=== PATIENT | female | born 2000 | race African-American/Black ===

== ENCOUNTER 2019-06-12 12:49 | Inpatient (IN) ==
[2019-06-12] MEDS ORDERED: Ondansetron 4 MG/2 ML VIAL IVP PRN (13:03)
[2019-06-12] MEDS ORDERED: Metoclopramide 10 MG/2 ML VIAL IVP PRN (13:03)
[2019-06-12] MEDS ORDERED: Naloxone 0.4 MG/ML INJ IVP PRN (13:03)
[2019-06-12] MEDS ORDERED: *HR* Nalbuphine 10 MG/ML AMPUL IVP PRN (13:03)
[2019-06-12] MEDS ORDERED: Famotidine 20 MG/2 ML VIAL IVP PRN (13:03)
[2019-06-12] MEDS ORDERED: miSOPROStoL 25 MCG TABLET PO PRN (13:03)
[2019-06-12] MEDS ORDERED: Lidocaine 1% 20 ML MDV INFILT PRN (13:03)
[2019-06-12] MEDS ORDERED: Oxytocin 20 units/ LR 1000 mL 20 UNIT/1,000 ML BAG IVC SCH (13:15)
[2019-06-12] MEDS ORDERED: Ringers Solution, Lactated 1,000 ML IVC SCH (13:15)
[2019-06-12] MEDS ORDERED: Epidural Premix (fent/bupiv) 110 ML EP SCH (13:45)
[2019-06-12 14:23] LABS: Basophils % 0.4 %; Eosinophils # 0.1 K/mcL (0.0-0.6); Eosinophils % 1.5 %; Hematocrit 27.8 % (35.3-44.9); Hemoglobin 8.3 g/dL (11.5-15.4); Lymphocytes # 0.7 K/mcL (0.6-4.6); Lymphocytes % 7.5 %; Mean Corpuscular HGB Conc 29.9 g/dL (31.6-35.5); Mean Corpuscular Hemoglobin 24.3 pg (28.0-33.3); Mean Corpuscular Volume 81.5 fL (83.0-100.0); Mean Platelet Volume 9.6 fL (9.4-12.4); Monocytes % 10.6 %; Neutrophils # 7.3 K/mcL (1.6-8.9); Platelet Count 240 K/mcL (140-400); Red Blood Count 3.41 M/mcL (3.82-4.97); Red Cell Distribution Width 15.6 % (11.5-14.5); White Blood Count 9.4 K/mcL (4.3-11.1)
[2019-06-12 14:37] LABS: Amphetamine Screen,Urine Negative ng/mL (Cutoff=1000); Barbiturate Screen,Urine Negative ng/mL (Cutoff=200); Benzodiazepines Screen,Urine Negative ng/mL (Cutoff=200); Cannabinoid Screen,Urine Negative ng/mL (Cutoff = 50); Cocaine Screen,Urine Negative ng/mL (Cutoff= 300); Opiate Screen,Urine Negative ng/mL (Cutoff=300); Phencyclidine Screen,Urine Negative ng/mL (Cutoff=25)
[2019-06-12 15:44] LABS: Creatinine,Urine 83 mg/dL; Protein/Creatinine Ratio,Urine 0.17 mg/mg (0.00-0.20)
[2019-06-12 15:45] LABS: Alanine Aminotransferase 13 Units/L (7-52); Aspartate Amino Transferase 27 Units/L (13-39); BUN/Creatinine Ratio 10 (6-26); Blood Urea Nitrogen 7 mg/dL (6-20); Lactate Dehydrogenase 328 Units/L (140-271); Uric Acid 3.6 mg/dL (2.3-7.6); eGFR For African Americans > 60 (> 60); eGFR For Non-African Americans > 60 (> 60)
[2019-06-12] MEDS ORDERED: Ringers Solution, Lactated 1,000 ML ONE (22:54)
[2019-06-13] MEDS ORDERED: Ibuprofen 600 MG TABLET PO STA (05:02)
[2019-06-13] MEDS ORDERED: Oxytocin 20 units/ LR 1000 mL 20 UNIT/1,000 ML BAG IVC SCH (08:36)
[2019-06-13] MEDS ORDERED: *HR* HYDROcodone/Acet 5/325 mg TABLET PO PRN (08:36)
[2019-06-13] MEDS ORDERED: Lanolin 7 G OINT...G. TP PRN (08:36)
[2019-06-13] MEDS ORDERED: Benzocaine/Menthol 56 GM AEROSOL SPRAY TP PRN (08:36)
[2019-06-13] MEDS ORDERED: Acetaminophen 325 MG TABLET PO PRN (08:36)
[2019-06-13] MEDS: Prenatal Vit/FA 1 EACH TABLET PO SCH (09:13)
[2019-06-13] MEDS: Ibuprofen 600 MG TABLET PO PRN (14:56)
[2019-06-14 07:05] LABS: Basophils % 0.1 %; Eosinophils # 0.4 K/mcL (0.0-0.6); Eosinophils % 3.7 %; Hematocrit 21.7 % (35.3-44.9); Hemoglobin 6.8 g/dL (11.5-15.4); Immature Granulocytes % 2.8 % (0-4); Lymphocytes # 1.5 K/mcL (0.6-4.6); Lymphocytes % 15.4 %; Mean Corpuscular HGB Conc 31.3 g/dL (31.6-35.5); Mean Corpuscular Hemoglobin 24.5 pg (28.0-33.3); Mean Corpuscular Volume 78.3 fL (83.0-100.0); Mean Platelet Volume 9.7 fL (9.4-12.4); Monocytes # 1.1 K/mcL (0.0-1.3); Monocytes % 11.3 %; Neutrophils # 6.4 K/mcL (1.6-8.9); Platelet Count 213 K/mcL (140-400); Red Blood Count 2.77 M/mcL (3.82-4.97); Red Cell Distribution Width 15.8 % (11.5-14.5); Segmented Neutrophils % 66.7 %; White Blood Count 9.5 K/mcL (4.3-11.1)
[2019-06-14 07:44] VITALS: BP 123/76
[2019-06-14] MEDS: Prenatal Vit/FA 1 EACH TABLET PO SCH (09:08)
[2019-06-14] MEDS: Ibuprofen 600 MG TABLET PO PRN (09:09)
== END 2019-06-14 12:15 | disposition home or self-care (01) | DRG 806 ==
LOC: 1NENULAB 12:49 → 1NENUOBS 06-13 08:34
PROVIDERS: ADMIT Registered Nurse; ATTEND Registered Nurse

== ENCOUNTER 2022-01-12 06:53 | Inpatient (IN) ==
[~2022-01-12 06:53] MED LIST: *HR* Nalbuphine 10 MG/ML AMPUL IV PRN; Famotidine 20 MG/2 ML VIAL IVP PRN; Metoclopramide 10 MG/2 ML VIAL IVP PRN; Naloxone 0.4 MG/ML INJ IVP PRN
[2022-01-12] MEDS ORDERED: Naloxone 0.4 MG/ML INJ IVP PRN (07:43)
[2022-01-12] MEDS ORDERED: Ropivacaine/PF 0.2% 20 ML VIAL EP ONE (07:43)
[2022-01-12] MEDS ORDERED: EPHEDrine 50 MG/ML VIAL IVP PRN (07:43)
[2022-01-12] MEDS ORDERED: *HR* FentaNYL (PF) 100 MCG/2 ML VIAL EP ONE (07:43)
[2022-01-12] MEDS ORDERED: Ondansetron 4 MG/2 ML VIAL IVP PRN (07:43)
[2022-01-12] MEDS ORDERED: Epidural Premix (fent/bupiv) 110 ML EP SCH (07:45)
[2022-01-12 07:53] LABS: Basophils % 0.2 %; Eosinophils # 0.1 K/mcL (0.0-0.6); Eosinophils % 0.9 %; Hematocrit 33.5 % (35.3-44.9); Hemoglobin 10.1 g/dL (11.5-15.4); Immature Granulocytes % 1.1 % (0-4); Lymphocytes # 1.9 K/mcL (0.6-4.6); Lymphocytes % 16.8 %; Mean Corpuscular HGB Conc 30.1 g/dL (31.6-35.5); Mean Corpuscular Hemoglobin 24.3 pg (28.0-33.3); Mean Corpuscular Volume 80.5 fL (83.0-100.0); Mean Platelet Volume 9.4 fL (9.4-12.4); Monocytes # 0.8 K/mcL (0.0-1.3); Neutrophils # 8.2 K/mcL (1.6-8.9); Platelet Count 256 K/mcL (140-400); Red Blood Count 4.16 M/mcL (3.82-4.97); Red Cell Distribution Width 19.9 % (11.5-14.5); White Blood Count 11.1 K/mcL (4.3-11.1)
[2022-01-12] MEDS: Ringers Solution, Lactated 1,000 ML IVC SCH ×2 (08:16→10:36)
[2022-01-12 09:08] LABS: Amphetamine Screen,Urine Negative ng/mL (Cutoff=1000); Barbiturate Screen,Urine Negative ng/mL (Cutoff=200); Benzodiazepines Screen,Urine Negative ng/mL (Cutoff=200); Cannabinoid Screen,Urine Negative ng/mL (Cutoff = 50); Cocaine Screen,Urine Negative ng/mL (Cutoff= 300); Opiate Screen,Urine Negative ng/mL (Cutoff=300); Phencyclidine Screen,Urine Negative ng/mL (Cutoff=25)
[2022-01-12] MEDS ORDERED: Oxytocin 30 UNIT/503 ML BAG IVC ONE (10:21)
[2022-01-12] MEDS ORDERED: Ropivacaine/PF 0.2% 20 ML VIAL ONE (11:01)
[2022-01-12] MEDS ORDERED: miSOPROStoL 100 MCG TABLET RC ONE (15:00)
[2022-01-12] MEDS ORDERED: Methylergonovine 0.2 MG/ML AMPUL IM ONE (15:00)
[2022-01-12] MEDS ORDERED: Lanolin 7 G OINT...G. TP PRN (18:47)
[2022-01-12] MEDS ORDERED: Ondansetron ODT 4 MG TAB.RAPDIS SL PRN (18:47)
[2022-01-12] MEDS ORDERED: Oxytocin 30 UNIT/503 ML BAG IVC SCH (18:47)
[2022-01-12] MEDS ORDERED: Benzocaine/Menthol 56 GM AEROSOL SPRAY TP PRN (18:47)
[2022-01-12] MEDS: Ibuprofen 600 MG TABLET PO SCH ×2 (18:57→18:58)
[2022-01-12] MEDS: Acetaminophen 325 MG TABLET PO SCH (18:58)
[2022-01-13] MEDS: Ibuprofen 600 MG TABLET PO SCH (02:23)
[2022-01-13] MEDS: Acetaminophen 325 MG TABLET PO SCH (02:23)
[2022-01-13 05:05] VITALS: O2SAT 100
[2022-01-13 05:51] LABS: Basophils % 0.2 %; Eosinophils # 0.1 K/mcL (0.0-0.6); Hematocrit 25.2 % (35.3-44.9); Immature Granulocytes % 0.9 % (0-4); Lymphocytes % 16.3 %; Mean Corpuscular HGB Conc 30.2 g/dL (31.6-35.5); Mean Corpuscular Hemoglobin 24.1 pg (28.0-33.3); Mean Corpuscular Volume 79.7 fL (83.0-100.0); Mean Platelet Volume 9.5 fL (9.4-12.4); Monocytes # 1.1 K/mcL (0.0-1.3); Monocytes % 9.2 %; Neutrophils # 8.9 K/mcL (1.6-8.9); Platelet Count 201 K/mcL (140-400); Red Blood Count 3.16 M/mcL (3.82-4.97); Red Cell Distribution Width 19.7 % (11.5-14.5); Segmented Neutrophils % 72.4 %; White Blood Count 12.3 K/mcL (4.3-11.1)
[2022-01-13 05:53] LABS: Hemoglobin 7.6 g/dL (11.5-15.4)
[2022-01-13 07:01] VITALS: BP 135/85; PULSE 54; TEMP 98.1
[2022-01-13] MEDS ORDERED: Prenatal Vit/FA 1 EACH TABLET PO SCH (09:00)
== END 2022-01-13 15:00 | disposition home or self-care (01) | DRG 806 ==
LOC: 1NENULAB → 1NENUOBS 18:47
PROVIDERS: ADMIT Registered Nurse; ATTEND Registered Nurse